=== PATIENT | male | born 1985 | race Caucasian/White ===

== ENCOUNTER 2016-07-22 16:52 | Emergency (ER) | payer OTHER ==
[~2016-07-22] VITALS: Ht 180.3 cm; Wt 63.2 kg
[~2016-07-22 16:52] MED LIST: ADDERALL; ADVIL200 M1 PO; BUPRENORPHIN-N1 EACH SL; CARAFATE100 MG/ML PO; Motrin PO; NAVANE PO; NAVANE2 MG PO; NOHOMEMEDS; PERCOCET; PROTONIX40 MG PO; PROVENTIL,200 INHALA; REGLAN; ZANTAC PO; ZANTAC150 MG PO
[2016-07-22 16:57] VITALS: BP 132/87
== END 2016-07-22 19:00 | disposition left against medical advice (07) ==
LOC: EME 16:52
DX: S46.911A Strain of unspecified muscle, fascia and tendon at shoulder and upper arm level, right arm, initial encounter (principal); X58.XXXA Exposure to other specified factors, initial encounter; F10.99 Alcohol use, unspecified with unspecified alcohol-induced disorder; F11.90 Opioid use, unspecified, uncomplicated; F17.200 Nicotine dependence, unspecified, uncomplicated
CPT/HCPCS: 73030; 99281; 99282